=== PATIENT | female | born 1985 | race Caucasian/White ===

== ENCOUNTER 2016-12-02 00:13 | Emergency (ER) | payer OTHER ==
[~2016-12-02] VITALS: Ht 180.3 cm; Wt 132.4 kg
[~2016-12-02 00:13] MED LIST: BUPR100T4 PO; BUSP15TA70 PO; CETI10TA84 PO; CHLO1TAB19 PO; FLUT0.15 INH; LISI-729 PO; METF-841 PO; SERT-234 PO
[2016-12-02 00:30] VITALS: TEMP 36.7; Ht 180.3 cm; Wt 132.4 kg
[2016-12-02] MEDS ORDERED: IBUPROFEN 600 MG TAB PO STA (00:50)
[2016-12-02] MEDS ORDERED: OXYCODONE IR HOME PACK PO ONE (02:00)
--- NOTE | 2016-12-02 02:02 | EMERGENCY ROOM VISIT NOTE ---
ED Visit Note First contact with patient: 00:33 I saw this patient in conjunction with Celeste Contreras PA-C. I agree with her decision making and treatment plan.
[2016-12-02 02:15] VITALS: BP 134/70; PULSE 72; O2SAT 98
--- NOTE | 2016-12-02 06:02 | EMERGENCY ROOM VISIT NOTE ---
ED Visit Note First contact with patient: 00:33 CHIEF COMPLAINT: Foot pain HISTORY OF PRESENT ILLNESS: This 31-year-old patient presents to the emergency department with boyfriend complaining of swelling and pain in the right foot at rest and worse with weight bearing. The patient twisted it when she misstepped yesterday. The patient rates the pain as throbbing and 6/10. The patient has taken nothing for relief of the pain. The patient is barely able to walk. No numbness or weakness. No ankle pain. There are no lacerations of the foot. The patient is able to move all of their toes and their ankle without pain. + previous fracture to this foot. REVIEW OF SYSTEMS: GENERAL: A 6 system review of systems was completed with positives and pertinent negatives in the HPI. ALLERGIES: Bee sting MEDICATIONS: Reviewed PMH: Diabetes SOCIAL HISTORY: No drug use PHYSICAL EXAM: Vital Signs: Reviewed Nurse's notes, vital signs stable. GENERAL : Pleasant female, in no acute distress, but appears in pain, well-developed, well-nourished. MUSCULOSKELATAL: There is no visual deformity of the right foot. There is no erythema no ecchymosis. There is no warmth. There is tenderness and swelling over the base of the fifth metatarsal of the right foot. There is no tenderness over the lateral or medial malleolus. No tenderness of the tib/fib. The range of motion of the foot is limited secondary to pain. There is no tenderness over the plantar fascia. The skin is intact and there are no lacerations or puncture wounds. Dorsalis pedis pulse 2+ . Capillary refill less than 2 seconds. EMERGENCY DEPARTMENT COURSE: I examined the patient. An X-ray of the right foot was reviewed by myself and my attending and reveals fifth metatarsal base fracture which is acute on chronic per chart review. The patient was informed that she would be getting a posterior splint with crutches but walked out of the ER and was contacted by nursing and refused to come back. She was informed by myself to follow-up orthopedics. They did try to contact her with no response. The patient was discharged home in good condition. DIAGNOSIS: Right Foot Fracture, base of the fifth metatarsal TREATMENT: as above Current/Historical Medications Scheduled Bupropion Hcl (Wellbutrin), 100 MG PO QAM Buspirone Hcl (Buspar), 1 TAB PO TID Cetirizine (Zyrtec), 10 MG PO QAM Chlorpromazine Hcl (Thorazine), 25 MG PO TID Lisinopril (Zestril), 5 MG PO QAM Metformin HCl (Metformin HCl ER), 1 TAB PO BID Sertraline (Zoloft), 100 MG PO DAILY AT NOON Scheduled PRN Fluticasone Propionate (Nasal) (Flonase Allergy Relief), 2 SPRAY INH DAILY PRN for PRN Allergies Coded Allergies: NO KNOWN DRUG ALLERGIES (Verified Allergy, Unknown, ., 03/22/16) Uncoded Allergies: BEE STINGS (Allergy, Unknown, ANAPHYLAXIS, 08/05/15) Vital Signs Date Time Temp Pulse Resp B/P (MAP) Pulse Ox O2 Delivery O2 Flow Rate FiO2 12/02/16 02:15 72 20 134/70 98 12/02/16 00:30 36.7 72 18 149/84 97 Room Air Medications Administered Medications (Trade) Dose Ordered Sig/Jessica Route Start Time Stop Time Status Last Admin Dose Admin Oxycodone HCl (Roxicodone Immediate Rel 5MG Home Pack) 1 homepack UD ONCE PO 12/02/16 02:00 12/02/16 02:01 DC 12/02/16 02:11 1 HOMEPACK Departure Information Impression Primary Impression: Foot fracture, right Dispostion Home / Self-Care Condition GOOD Referrals Stefan Melendez D.O. Forms HOME CARE DOCUMENTATION FORM, Work Instructions, Return To Work: 2 days IMPORTANT VISIT INFORMATION Patient Instructions [facility], ED Fx Foot Additional Instructions Oxycodone (OxyIR) 5mg: Take 1-2 pills every four hours for breakthrough pain. Avoid alcohol, operating machinery or dangerous equipment, working on ladders or roofs, DRIVING, or situations where being under the influence may be dangerous. It is recommended to use an [id number] stool softener such as Colace, 100mg twice daily while taking this medication to avoid constipation. Ibuprofen(Motrin, Advil) may be used for fever or pain. Use 600mg every six hours as needed. Take with food. Avoid using more than 2400mg in a 24 hour period. Do not use 2400mg per day for more than three consecutive days without physician direction. Prolonged inappropriate use can lead to stomach upset or ulcers. This medication can be taken if you need to drive, work, or perform activities which may be dangerous when taking narcotic pain medication. (AND/OR) Acetaminophen(Tylenol) may be used for fever or pain. Use 1000mg every six hours as needed. Avoid using more than 3000mg in a 24 hour period. This medication can be taken if you need to drive, work, or perform activities which may be dangerous when taking narcotic pain medication. Ice compresses for 20 minutes at a time four times daily for 2-3 days. Use the crutches as instructed. Rest and elevate your injury. Do not get the splint wet. If your splint feels excessively tight, you have worsening pain, develop numbness or tingling, or your digits appear blue, loosen the kamran wrap. Then reapply the kamran wrap gently without removing the splint. If your symptoms are not quickly relieved return to the ER for re- evaluation. Continue current medications. Return to the ER immediately for any numbness, tingling, severe pain, extreme swelling in the extremity or as needed. Call Orthopedics tomorrow to arrange follow up for your injury. Work Instructions Return To Work: 2 days
--- NOTE | 2016-12-02 07:41 | DIAGNOSTIC IMAGING REPORT ---
RIGHT FOOT MIN 3 VIEWS ROUTINE CLINICAL HISTORY: Fall. Right foot pain. COMPARISON STUDY: Right foot 10/23/2010. FINDINGS: No acute fracture or dislocation within the right foot. The Lisfranc joint is intact. Mild soft tissue swelling within the lateral mid foot. Mild osteoarthritis at the first MTP joint. Old avulsion injury at the base of the fifth metatarsal demonstrated by well corticated fragment at this location. IMPRESSION: 1. No acute fracture or dislocation within the right foot. 2. No change in the old avulsion injury at the base of the fifth metatarsal. Electronically signed by: Peter Bergeron M.D. 12/02/2016 7:40 AM Dictated Date/Time: 12/02/2016 7:38 AM
== END 2016-12-02 02:15 | disposition home or self-care (01) ==
LOC: C.EDB 00:14 → C.EDC 02:15
DX: S92.901A Unspecified fracture of right foot, initial encounter for closed fracture (principal); X50.9XXA Other and unspecified overexertion or strenuous movements or postures, initial encounter; E11.9 Type 2 diabetes mellitus without complications